=== PATIENT | female | born 1960 | race Caucasian/White ===

== ENCOUNTER 2016-09-24 22:21 | Emergency (ER) | payer OTHER ==
[2016-09-24 22:37] VITALS: BP 151/86; PULSE 72; TEMP 98.2; BMI 36.6
--- NOTE | 2016-09-25 00:09 | PDOC ---
History of Present Illness - General History Source: Patient Exam Limitations: No Limitations - History of Present Illness Initial Comments: CHIEF COMPLAINT: 56 y/o afebrile female with PMH DM c/o right knee pain s/p fall 4 days ago. HISTORY OF PRESENT ILLNESS: The patient states she was walking on stairs 4 days ago when her knee gave out and since then she's had pain. She can walk but with pain. Going down stairs is the when the pain is the worst. She denies head trauma, LOC, numbness/tingling in LEs, f/c, redness to affected extremity. She has taken tylenol for pain with little relief. Vital signs on arrival are within normal limits. REVIEW OF SYSTEMS: GENERAL/CONSTITUTIONAL: No fever/chills. No weakness. No weight change. HEAD, EYES, EARS, NOSE AND THROAT: No change in vision. No ear pain or discharge. No sore throat.. GENITOURINARY: No dysuria, frequency, or change in urination. MUSCULOSKELETAL: +right knee pain and swelling. No neck or back pain. SKIN: No rash or easy bruising. NEUROLOGIC: No headache, vertigo, loss of consciousness, or loss of sensation. PHYSICAL EXAM: VITAL_SIGNS: within normal limits GENERAL_APPEARANCE: alert, cooperative, obvious discomfort with ambulation. MENTAL_STATUS: speech clear, oriented X 3, responds appropriately to questions. NEURO: motor intact and sensory intact in injured extremity. EXTREMITIES: MIldly edematous right knee with TTP of lateral joint line. No tenderness at the tibial plateau. Negative lachmann's test. SKIN: warm, dry, good color. <Nereida Rollins - Last Filed: 09/25/16 01:54> <Jairo Marks - Last Filed: 09/25/16 06:58> - General Chief Complaint: Pain, Acute Stated Complaint: INJURY Time Seen by Provider: 09/24/16 23:51 Past History - Past Medical History Diabetes: Yes HTN: Yes - Psycho/Social/Smoking Cessation Hx Suicidal Ideation: No Smoking History: Never smoked <Nereida Rollins - Last Filed: 09/25/16 01:54> <Jairo Marks - Last Filed: 09/25/16 06:58> - Past Medical History Allergies/Adverse Reactions: Allergies Allergy/AdvReac Type Severity Reaction Status Date / Time ibuprofen [From Advil] Allergy Verified 09/24/16 22:29 Home Medications: Ambulatory Orders Atorvastatin Ca [Lipitor] 20 mg PO HS 09/24/16 Metformin HCl [Metformin HCl ER] 1,000 mg PO BID 09/24/16 Tramadol HCl 50 mg PO Q6H #20 tablet MDD 4 09/25/16 *Physical Exam - Vital Signs Last Vital Signs Temp Pulse Resp BP Pulse Ox 98.2 F 72 16 151/86 99 09/24/16 22:30 09/24/16 22:30 09/24/16 22:30 09/24/16 22:30 09/24/16 22:30 <Nereida Rollins - Last Filed: 09/25/16 01:54> - Vital Signs Last Vital Signs Temp Pulse Resp BP Pulse Ox 98.2 F 72 16 151/86 99 09/24/16 22:30 09/24/16 22:30 09/24/16 22:30 09/24/16 22:30 09/24/16 22:30 <Jairo Marks - Last Filed: 09/25/16 06:58> ED Treatment Course - Medications Given in the ED: ED Medications Discontinued Medications Generic Name Dose Route Start Last Admin Trade Name Freq PRN Reason Stop Dose Admin Tramadol HCl 50 mg 09/25/16 00:19 09/25/16 00:46 Ultram - PO 09/25/16 00:20 50 mg ONCE ONE Administration <Jairo Marks - Last Filed: 09/25/16 06:58> Medical Decision Making - Medical Decision Making A/P: 56 y/o afebrile female with right knee pain s/p buckling 4 days ago. Most likely lateral meniscus/ligament issue. Plan is as follows: 1. xray 2. PO tramadol 3. KIKO 4. Crutches Xray IMPRESSION: No acute fracture or dislocation. No radiopaque FB. The patient was given her results. She was given a knee immobilizer and crutches. Suggested RICE instructions and ortho follow up. Provided her with a work note. The patient verbalizes understanding of all instructions, has no further questions and is awaiting discharge. <Nereida Rollins - Last Filed: 09/25/16 01:54> - Medical Decision Making 09/25/16 06:58 ED ATTENDING NOTE: I was available for consultation and review of the case and plan as needed. <SleetmuteJairo Forbes - Last Filed: 09/25/16 06:58> *DC/Admit/Observation/Transfer <Nereida Rollins - Last Filed: 09/25/16 01:54> <Jairo Marks Leidy - Last Filed: 09/25/16 06:58> Diagnosis at time of Disposition: Knee pain, right Qualifiers: Chronicity: acute Qualified Code(s): M25.561 - Pain in right knee - Discharge Dispostion Disposition: HOME Condition at time of disposition: Good - Prescriptions Prescriptions: Tramadol HCl 50 mg PO Q6H #20 tablet MDD 4 - Referrals Referrals: Tam Leonard MD [Primary Care Provider] - Taurus Valdez MD [Staff Physician] - - Patient Instructions Printed Discharge Instructions: DI for Knee Pain, How to Use Crutches, How To Perform RICE (Rest, Ice, Compress, Elevate) Additional Instructions: Discharge Instructions: -A prescription for pain medication was sent to your pharmacy; may cause drowsiness -Follow RICE instructions and use crutches for stability -Call Dr. Valdez in the morning to schedule follow up appointment for possible MRI - Post Discharge Activity Work/School Note: Back to Work
[2016-09-25] MEDS ORDERED: traMADol HCL 50 MG TABLET PO ONE (00:19)
[2016-09-25] MEDS ORDERED: traMADol HCL 50 MG TABLET ONE (00:47)
== END 2016-09-25 02:30 | disposition home or self-care (01) ==
LOC: JER 22:21
DX: M25.561 Pain in right knee (principal); I10 Essential (primary) hypertension; E11.9 Type 2 diabetes mellitus without complications; Z79.84 Long term (current) use of oral hypoglycemic drugs; E78.00 Pure hypercholesterolemia, unspecified
CPT/HCPCS: 73560-TC-RT; 99282-25

== ENCOUNTER 2016-10-24 05:24 | Day surgery (SDC) | payer OTHER ==
[2016-10-15 14:01] VITALS: BMI 37.2
[~2016-10-24 05:24] MED LIST: BUPIVACAINE HCL/PF (5 MG/ML) 30 ML VIAL IJ ONE; ceFAZolin SODIUM 1 GM VIAL IVPB ONE
[2016-10-24] MEDS ORDERED: BUPIVACAINE HCL/PF 0.5% (5MG/ML) 10 ML VIAL ONE (12:34)
--- NOTE | 2016-10-24 13:03 | HP ---
[facility] - Chief Complaint Chief Complaint: right knee pain History of Present Illness: right knee pain History Source: Patient Limitations to Obtaining History: No Limitations - Past Medical History Allergies/Adverse Reactions: Allergies Allergy/AdvReac Type Severity Reaction Status Date / Time ibuprofen [From Advil] Allergy Severe Verified 10/24/16 10:54 ...LMP: 12/14/95 - Current Medications Current Medications: Home Medications Medication Instructions Recorded Atorvastatin Ca [Lipitor] 20 mg PO HS 09/24/16 Metformin HCl [Metformin HCl ER] 1,000 mg PO BID 09/24/16 Tramadol HCl 50 mg PO Q6H PRN MDD 4 10/15/16 Satellite Physical Exam - Physical Examination Vital Signs: Vital Signs Period Temp Pulse Resp BP Sys/Hayward Pulse Ox Last 24 Hr 98.2 F 72 16 153/89 96 General Appearance: Well Nourished ENT: Clear, Nasal Congestion Heart: Regular rate & rhythm Breasts: Soft Abdomen: Soft Extremities: No edema Satellite Impression/Plan - Impression/Plan Impression: right knee pain, lateral meniscus tear, OA Operative Procedure: right knee arthroscopy, meniscectomy, debridement Date to be Performed: 10/24/16
[2016-10-24] MEDS ORDERED: MIDAZOLAM HCL 2 MG/2 ML SINGLE DOSE VIAL ONE (13:14)
[2016-10-24] MEDS ORDERED: PROPOFOL 20 ML ONE ×2 (13:14)
[2016-10-24] MEDS ORDERED: ceFAZolin SODIUM 1 GM VIAL ONE (13:42)
[2016-10-24] MEDS ORDERED: ceFAZolin SODIUM 1 GM VIAL IVPB ONE (13:47)
[2016-10-24] MEDS ORDERED: BUPIVACAINE HCL/PF (5 MG/ML) 30 ML VIAL IJ ONE (14:15)
--- NOTE | 2016-10-24 14:23 | OP ---
Operative Note - Note: Operative Date: 10/24/16 Pre-Operative Diagnosis: right knee lateral meniscus tear, OA Operation: right knee arthroscopy, partial medial and lateral meniscectomy, debridement chondroplasty Post-Operative Diagnosis: Same as Pre-op Surgeon: Smooth Vila Anesthesiologist/SPRUE KNOCKER: Fernanda Orozco Anesthesia: General, Local Specimens Removed: shavings Drains, Volume Out (mls): 0 Blood Volume Replaced (mls): 0 Fluid Volume Replaced (mls): 500 Operative Report Dictated: Yes
[2016-10-24] MEDS ORDERED: oxyCODONE HCL 5 MG TABLET PO PRN (14:41)
[2016-10-24] MEDS ORDERED: ONDANSETRON 4 MG/2 ML VIAL IVPUSH PRN (14:41)
[2016-10-24] MEDS ORDERED: LACTATED RINGERS SOLUTION 1,000 ML IV SCH (14:45)
[2016-10-24] MEDS ORDERED: ACETAMINOPHEN INJECTION 100 ML IVPB ONE (14:57)
[2016-10-24] MEDS ORDERED: ACETAMINOPHEN 1000 MG/100 ML VIAL (NON FORMULARY) IVPB ONE (15:22)
[2016-10-24] MEDS ORDERED: oxyCODONE HCL 5 MG TABLET ONE (15:54)
[2016-10-24 16:27] VITALS: TEMP 97.5
[2016-10-24 18:18] VITALS: BP 139/75; PULSE 74
--- NOTE | 2016-10-25 14:43 | OP ---
DATE OF OPERATION: 10/24/2016 PREOPERATIVE DIAGNOSIS: Right knee lateral meniscus tear and osteoarthritis. POSTOPERATIVE DIAGNOSIS: Right knee lateral meniscus tear and osteoarthritis. PROCEDURE: Right knee arthroscopy, partial medial and lateral meniscectomy and debridement chondroplasty. SURGEON: Yohan Lance MD TRANSPORTATION OPERATIONS MANAGER: Fernanda Orozco CRNA ANESTHESIA: MAC. Local injection of 20 mL 0.5% Marcaine/1% lidocaine mix. DRAINS: None. COMPLICATIONS: None. FLUID REPLACEMENT: 500 mL Plasma-Lyte. SPECIMEN: Arthroscopic shavings. BLOOD LOSS: None. BLOOD GIVEN: None. INDICATIONS: This patient is a 56-year-old female with a preoperative diagnosis of a right knee lateral meniscus tear and osteoarthritis. After understanding the potential risks, complications, alternatives, benefits to surgery versus nonsurgical treatment, the patient elected to undergo this procedure. DESCRIPTION OF PROCEDURE: The patient was brought to the operating room. Peripheral IV placed. IV sedation given. Then 1 g of IV Ancef was given. LMA anesthesia was induced. A tourniquet was applied to the right lower extremity. Was placed in the C-clamp leg rgealado with ample padding throughout. The right lower extremity was prepped and draped in usual sterile fashion, elevated, exsanguinated with an Esmarch bandage and a tourniquet inflated to 275 mmHg. The superior medial outflow portal was established. A lateral port was established. Under direct visualization, a medial portal was established and a diagnostic arthroscopy was performed. The patient was seen to have grade 1 changes of the medial femoral condyle and medial tibial plateau. The medial meniscus had small fraying of the body of the posterior horn. Therefore, this was debrided and photographs were taken. Overall, the medial compartment had minimal osteoarthritis. In the intercondylar notch, the ACL looked good but there was a large chunk of extruded fragment from the lateral meniscus. This was debrided with the curved shaver. The ACL was then probed. It seemed to have the appropriate length. I then had to continue to do an extensive debridement of the anterior horn and body of the lateral meniscus. Photographs were taken throughout. Once this was done, I was able to better visualize the lateral meniscus. There was a tear further into the body that was debrided as well. The patient had more significant arthritis in the lateral compartment with areas of grade 2, almost grade 3 on the lateral tibial plateau, and grade 1-2 changes diffusely on the lateral femoral condyle, but there was one swollen area about the size of dime of grade 4 in the middle of the lateral femoral condyle. Next, our attention turned to the patellofemoral joint. The patient had large areas of exposed bone, wide areas of grade 4 osteoarthritis on the undersurface of the patella, the medial and especially the lateral femoral condyle near the trochlear notch. The entire area was debrided. A debridement chondroplasty was performed. All debris was removed. All excess saline removed. The arthroscopy portal was closed with 3-0 nylon sutures. The area was then washed and dried. Then, 20 mL 0.5% Marcaine were introduced into the joint. It was then covered with Xeroform, 4 x 4 gauze, Webril, and an Morales bandage. The tourniquet was taken down for a total tourniquet time of 20 minutes. There were no complications during the case. The patient tolerated the procedure well and was brought to the ambulatory recovery in stable condition. YOHAN LANCE M.D. [id number]
== END 2016-10-24 18:18 | disposition home or self-care (01) ==
LOC: JASU-SURG 05:24
PROVIDERS: ATTEND Orthopaedic Surgery
PROC: 0SBC4ZZ Excision of Right Knee Joint, Percutaneous Endoscopic Approach (ICD-10-PCS; 2016-10-24)
PROC: 0SBC4ZZ Excision of Right Knee Joint, Percutaneous Endoscopic Approach (ICD-10-PCS; principal; 2016-10-24 12:00)
DX: M23.200 Derangement of unspecified lateral meniscus due to old tear or injury, right knee (principal); M17.11 Unilateral primary osteoarthritis, right knee
CPT/HCPCS: 88304-TC; 94760

== ENCOUNTER 2019-04-01 10:39 | Day surgery (SDC) | payer OTHER ==
[2019-03-31 12:36] VITALS: BMI 33.6
--- NOTE | 2019-04-01 10:26 | HP ---
[facility] - Chief Complaint Chief Complaint: left knee pain - Past Medical History Allergies/Adverse Reactions: Allergies Allergy/AdvReac Type Severity Reaction Status Date / Time ibuprofen [From Advil] Allergy Severe "itchiness" Verified 03/31/19 12:36 ...LMP: 12/14/95 - Current Medications Current Medications: Home Medications Medication Instructions Recorded Atorvastatin Ca [Lipitor] 20 mg PO HS 09/24/16 metFORMIN HCL [Metformin ER 1,000 mg PO BID 09/24/16 Gastric] Losartan Potassium 50 mg PO DAILY 03/31/19 Hydrocodone/Acetaminophen 1 each PO Q6H #20 tablet MDD 4 04/01/19 [Hydrocodone-Acetamin 5-325 mg] Satellite Physical Exam - Physical Examination General Appearance: Well Nourished, Well Developed, Alert & Oriented x3 ENT: Clear Lung: Normal air movement Heart: Regular rate & rhythm Extremities: Other (left knee- + swelling, + ttp, dec rom, + mcmurrays, nvi, MRI + lmt, OA) Neurological: Intact, Alert, Oriented Satellite Impression/Plan - Impression/Plan Impression: left knee internal derangement Operative Procedure: left knee arthroscopy Date to be Performed: 04/01/19
[2019-04-01] MEDS ORDERED: LACTATED RINGERS SOLUTION 1,000 ML IV SCH (11:45)
[2019-04-01] MEDS ORDERED: oxyCODONE HCL 5 MG TABLET PO PRN ×2 (11:45)
[2019-04-01] MEDS ORDERED: ONDANSETRON 4 MG/2 ML VIAL IVPUSH PRN (11:45)
[2019-04-01] MEDS ORDERED: BUPIVACAINE HCL/PF 0.5% (5 MG/ML) 30 ML VIAL IJ ONE ×2 (15:00→15:43)
[2019-04-01] MEDS ORDERED: MIDAZOLAM HCL 2 MG/2 ML SINGLE DOSE VIAL ONE (15:11)
[2019-04-01] MEDS ORDERED: ceFAZolin SODIUM 1 GM VIAL IVPB ONE (15:12)
[2019-04-01] MEDS ORDERED: EPHEDRINE SULFATE/0.9% NACL/PF 50 MG/10 ML SYRINGE NR ONE ×2 (15:27)
--- NOTE | 2019-04-01 16:05 | OP ---
Operative Note - Note: Operative Date: 04/01/19 Pre-Operative Diagnosis: left knee LM tear, PF OA Operation: left knee arthroscopy, partial medial and lateral meniscectomy, debridement chondroplasty Post-Operative Diagnosis: Same as Pre-op Surgeon: Smooth Vila Anesthesiologist/COMPENSATION AND BENEFITS MANAGER: Susie Mauricio Anesthesia: General, Local Specimens Removed: shavings Estimated Blood Loss (mls): 0 Drains, Volume Out (mls): 0 Blood Volume Replaced (mls): 0 Fluid Volume Replaced (mls): 500 Operative Report Dictated: Yes
[2019-04-01 18:20] VITALS: TEMP 98
[2019-04-01 19:26] VITALS: BP 150/80; PULSE 70
--- NOTE | 2019-04-01 23:09 | OP ---
DATE OF OPERATION: 04/01/2019 PREOPERATIVE DIAGNOSIS: Left knee pain, lateral meniscus tear, and osteoarthritis. POSTOPERATIVE DIAGNOSIS: Left knee pain, lateral meniscus tear, and osteoarthritis, plus degenerative tears of medial meniscus. PROCEDURE: Left knee arthroscopy, partial medial and lateral meniscectomies, and debridement of chondroplasty of the patellofemoral joint. SURGEON: Smooth Vila MD LEATHER SHAVER: None. ANESTHESIOLOGIST: Susie Ambrosio CRNA ANESTHESIA: LMA with local injection of 20 mL of 0.5% Marcaine. DRAINS: None. COMPLICATIONS: None. SPECIMENS: Arthroscopic shavings. BLOOD LOSS: None. BLOOD GIVEN: None. INDICATIONS: This patient is a 59-year-old female with a preoperative diagnosis of left knee pain and lateral meniscus tear and osteoarthritis of the patellofemoral joint. We discussed the potential risks, complications, alternatives, benefits of surgery versus nonsurgical treatment. She understands that she will not resolve some of her pain, whatever is due to the osteoarthritis and this may need to be treated in the future. She may even need a total knee replacement. She understands that. DESCRIPTION OF PROCEDURE: The patient is brought to the operating room, peripheral IV placed, IV sedation given. Two g of IV Ancef were given. LMA anesthesia was induced. She was placed on the OR table. The left lower extremity had ample Webril placed in the left upper thigh. Tourniquet was applied. The Styrofoam C-clamp leg regalado was applied. The patient's leg was placed in the C-clamp leg regalado. The left lower extremity was prepped and draped in the sterile fashion, elevated, exsanguinated with an Esmarch bandage. Tourniquet inflated to 275 mmHg. A superomedial outflow portal was established with a number 11-scalpel blade. The lateral nils was established and arthroscope was introduced into the joint. Diagnostic arthroscopy was performed using a spinal needle. A medial portal was established. In the medial compartment, the patient had some degenerative-type fraying and several small radial tears of the body and posterior horn of the medial meniscus, but actually looked quite good. This was debrided with the curved shaver. The lateral tibial plateau had only grade 1 chondromalacia changes. The lateral femoral condyle looked good. The intercondylar notch looked good. There was a lot of synovitis. This was removed. In the lateral compartment, the patient seemed to have several larger radial tears of the posterior horn and body of the lateral meniscus. These were debrided with the straight-basket forceps, the right-biting forceps, and the curved shaver. Photographs were taken before, during, and after the partial meniscectomy, but the lateral femoral condyle looked good. The lateral tibial plateau had only grade 1 chondromalacia changes. Next, our attention was turned to the patellofemoral joint. Unfortunately, the patient did have large areas of exposed bone and grade 4 osteoarthritis. There were some unstable flaps. These were debrided with the curved shaver. After the debridement chondroplasty of the patellofemoral joint I was able to directly visualize it. It was put through a full range of motion. There were large areas on the undersurface of the patella and the femoral trochlea that had exposed bone that articulated to the other side. After review of all 3 compartments, I think at the moment at least the patient is a good candidate for a patellofemoral, partial knee replacement MAKOplasty. The area was copiously irrigated and washed out. All instrumentation was removed. Arthroscopy portals were closed with 3-0 nylon sutures. The area was then washed and dried. Then 20 mL of 0.5% Marcaine was introduced into the joint. The area was covered with Xeroform gauze, 4 x 4 gauze, Webril, and a 6-inch Morales bandage. Tourniquet was taken down after a total tourniquet time of about 20 minutes. There were no complications during the case. The patient tolerated the procedure quite well and was brought to the ambulatory recovery room in stable condition. Lata [id number]
--- NOTE | 2019-04-03 18:55 | PATH ---
Surgical Pathology Report Patient Name: ANTOINE HARMON [facility]. Rec. #: [id number] /Age/Gender: 1960 (Age: 59) / F Account: [id number] Location: [facility] Taken: 04/01/2019 Received: 04/02/2019 Reported: 04/03/2019 Physicians: Smooth Vila M.D. Specimen(s) Received LEFT KNEE SHAVINGS Clinical History Left knee tear Final Diagnosis KNEE SHAVINGS, LEFT, ARTHROSCOPY: FRAGMENTS OF DENSE FIBROCONNECTIVE TISSUE, ADIPOSE TISSUE, AND SYNOVIUM. Electronically Signed Shellie Spann M.D. Gross Description Received in formalin, labeled "left knee shavings," is a 2 x 1 x 0.8 cm. aggregate of atkinson-yellow soft tissue fragments. A sales representative leather goods portion is submitted in one cassette. MLSZ/04/02/2019 sansherry/04/02/2019
== END 2019-04-01 18:50 | disposition home or self-care (01) ==
LOC: JASU-SURG 10:39
PROVIDERS: ATTEND Orthopaedic Surgery
PROC: 0SBD4ZZ Excision of Left Knee Joint, Percutaneous Endoscopic Approach (ICD-10-PCS; 2019-04-01)
PROC: 0SBD4ZZ Excision of Left Knee Joint, Percutaneous Endoscopic Approach (ICD-10-PCS; 2019-04-01)
PROC: 0SBD4ZZ Excision of Left Knee Joint, Percutaneous Endoscopic Approach (ICD-10-PCS; principal; 2019-04-01 12:30)
DX: S83.282A Other tear of lateral meniscus, current injury, left knee, initial encounter (principal); S83.242A Other tear of medial meniscus, current injury, left knee, initial encounter; M25.562 Pain in left knee; M17.12 Unilateral primary osteoarthritis, left knee; X58.XXXA Exposure to other specified factors, initial encounter; Y93.9 Activity, unspecified; Y92.9 Unspecified place or not applicable
CPT/HCPCS: 29880; G0289; 82962; 88304-TC; 94760

== ENCOUNTER 2022-02-13 04:04 | Day surgery (SDC) | payer OTHER ==
[2022-02-08 13:03] VITALS: BMI 34.9
[2022-02-13] MEDS ORDERED: oxyCODONE HCL 5 MG TABLET PO PRN (08:42)
[2022-02-13] MEDS ORDERED: PROMETHAZINE HCL 25 MG/1 ML VIAL IVPUSH PRN (08:42)
[2022-02-13] MEDS ORDERED: ONDANSETRON 4 MG/2 ML VIAL IVPUSH PRN (08:42)
[2022-02-13] MEDS ORDERED: LACTATED RINGERS SOLUTION 1,000 ML IV SCH (08:45)
[2022-02-13] MEDS ORDERED: PROPOFOL 20 ML ONE (10:41)
[2022-02-13] MEDS ORDERED: MIDAZOLAM HCL 2 MG/2 ML SINGLE DOSE VIAL ONE (10:41)
[2022-02-13] MEDS ORDERED: SODIUM CHLORIDE 0.9% P/F 10 ML VIAL IJ ONE (10:43)
[2022-02-13] MEDS ORDERED: ceFAZolin SODIUM 1 GM VIAL ONE (10:43)
[2022-02-13] MEDS ORDERED: GLYCOPYRROLATE 0.2 MG/1 ML VIAL ONE (10:43)
[2022-02-13] MEDS ORDERED: LIDOCAINE HCL/PF 2% SDV 5ML VIAL ONE (10:43)
[2022-02-13] MEDS ORDERED: DEXAMETHASONE SOD PHOSPHATE 4 MG/1 ML VIAL ONE (10:43)
[2022-02-13] MEDS ORDERED: ELECTROLYTE-148 SOLN 1,000 ML IV SCH (10:45)
[2022-02-13] MEDS ORDERED: LIDOCAINE 1%/EPI 1:100000 (20 ML MULTI DOSE VIAL) ONE ×2 (11:00→11:09)
[2022-02-13] MEDS ORDERED: ceFAZolin SODIUM 1 GM VIAL IVPB ONE (11:03)
[2022-02-13] MEDS ORDERED: SUCCINYLCHOLINE CHLORIDE 200 MG/10 ML SYRINGE ONE (11:04)
[2022-02-13] MEDS ORDERED: LIDOCAINE 1%/EPI 1:100000 (20 ML MULTI DOSE VIAL) IJ ONE (11:20)
[2022-02-13] MEDS ORDERED: KETOROLAC TROMETHAMINE 30 MG/1 ML VIAL ONE (11:21)
[2022-02-13 16:55] VITALS: BP 118/66; PULSE 66; RESP 18; TEMP 98.4
== END 2022-02-13 16:50 | disposition home or self-care (01) ==
LOC: JASU-SURG 04:04
PROVIDERS: ATTEND Urology
PROC: 0TSD0ZZ Reposition Urethra, Open Approach (ICD-10-PCS; principal; 2022-02-13 10:00)
DX: N39.3 Stress incontinence (female) (male) (principal); I10 Essential (primary) hypertension; E11.9 Type 2 diabetes mellitus without complications; Z79.84 Long term (current) use of oral hypoglycemic drugs
CPT/HCPCS: 57288; C1771; 82962; 88302-TC; 94760